=== PATIENT | female | born 1950 | race Caucasian/White ===

== ENCOUNTER 2018-02-24 17:04 | Inpatient (IN) ==
[2018-02-24] MEDS ORDERED: Naloxone 0.4 MG/ML INJ IVP PRN (21:10)
--- NOTE | 2018-02-24 21:25 | Internal Med History&Physical ---
Date of Encounter: 02/24/18 Time of Encounter: 21:16 Internal Medicine - H&P: HPI Chief complaint: abnormal labs Admitted From: Emergency Dept Plans for Post Hospital Care: Home History of present illness: Ms. Harrison is a 67 year old female was a better history of atrial ablation, hypertension, hyperlipidemia. Patient was evaluated by primary care provider and sent to [facility] emergency room for possible jaundice. Patient was evaluated by [facility] emergency room. Basic labs were drawn. Noted that patient has a hemoglobin of 4.4. Also noted that patient has a possible urinary tract infection as per urine analysis evaluation. Patient was transferred to this hospital in view of hemoglobin 4.4. Patient had a previous history of GI bleed and she underwent endoscopy. It was noted that patient had a gastric ulcer at that time. Stool occult blood was negative at [facility] emergency room. Reason for transfer: Abnormally low hemoglobin for blood transfusion and further evaluation. Past Med Surg Social Fam HX - Past Medical History Medical history: atrial fibrillation, CHF, hyperlipidemia, hypertension Psychiatric history: depression - Social History Smoking Status: Never smoker Smokeless Tobacco Status: No Alcohol use: rarely Drug use: none Internal Medicine - H&P: Meds Aspirin Enteric Coated [Aspirin EC] 650 mg PO DAILY 02/24/18 [History] FLUoxetine HCl [Prozac] 40 mg PO DAILY 02/24/18 [History] Furosemide [Lasix] 20 mg PO DAILY 02/24/18 [History] Omeprazole [PriLOSEC] 20 mg PO DAILY 02/24/18 [History] Potassium Chloride [Klor-Con] 20 meq PO DAILY 02/24/18 [History] Simvastatin [Zocor] 40 mg PO HS 02/24/18 [History] Sulfamethoxazole/Trimeth DS [Bactrim DS] 1 each PO BID 02/24/18 [History] dilTIAZem HCl [Diltiazem 24Hr Cd] 120 mg PO DAILY 02/24/18 [History] 3 Allergy/AdvReac Type Severity Reaction Status Date / Time rivaroxaban [From Xarelto] Allergy See Verified 02/24/18 12:19 Comments Warfarin [From Coumadin] Allergy See Verified 02/24/18 12:19 Comments All Systems PM: A 10-system review of systems was performed and is negative for pertinent findings except as documented above in the HPI. - Constitutional Constitutional: no chills, no fever(s), no night sweats - EENT Eyes: no change in vision, no discharge, no pain, no photophobia Ears: no ear discharge, no ear pain, no tinnitus Nose, mouth and throat: no dysphagia, no nasal discharge, no neck pain, no sore throat - Cardiovascular Cardiovascular ROS IM: diaphoresis, dyspnea, no chest pain, no lightheadedness, no palpitations, no syncope - Respiratory Respiratory: no cough, no dyspnea, no wheezing, no excessive phlegm production - Gastrointestinal Gastrointestinal: no abdominal pain, no diarrhea, no hematemesis, no hematochezia, no melena, no nausea, no vomiting - Genitourinary Genitourinary: no change in urinary stream, no dysuria, no flank pain, no hematuria - Musculoskeletal Musculoskeletal ROS IM: no numbness, no tingling - Integumentary Integumentary IM: no rash, no unusual bruising - Neurological Neurological ROS: no confusion, no convulsions, no focal weakness, no numbness, no tingling, no tremor(s) - Hematologic/Lymphatic Hematologic/Lymphatic: no easy bruising - Constitutional Vitals: Temp Pulse Resp BP Pulse Ox 98.0 F 85 16 138/82 97 02/24/18 19:14 02/24/18 19:14 02/24/18 19:14 02/24/18 19:14 02/24/18 19:29 General appearance: Present: A&O X 3, pleasant, no acute distress, answers questions appropriately - Head Head exam: Present: atraumatic, normocephalic - Eye Eye exam: Present: PERRL, conjuntiva pink, sclera anicteric Pupils: Present: PERRL - Neck Neck exam general surgery: Present: supple, trachea midline. Absent: lymphadenopathy - Respiratory Respiratory exam: Present: CTAB. Absent: accessory muscle use, rales, rhonchi, wheezes - Cardiovascular Cardiovascular exam: Present: RRR, +S1, +S2. Absent: diastolic murmur, gallop, rubs, systolic murmur - GI/Abdominal GI/Abdominal exam: Present: normal bowel sounds, soft, no peritoneal signs. Absent: distended, tenderness - Extremities Exam Extremities exam: Present: warm, radial pulses palpable and symmetrical. Absent : calf tenderness, cyanotic, pedal edema - Neurological Exam Neurological exam: Present: CN II-XII intact, oriented X3, no focal deficits. Absent: pronater drift, facial droop, speech deficit - Skin Skin exam: Present: dry, intact - Assessment and plan (1) Symptomatic anemia Current Visit: No Status: Acute Assessment and plan: Patient does have symptom medical anemia. Patient's hemoglobin is 4.4. This appears to be hypochromic microcytic: Likely iron deficiency. Patient has a upcoming appointment for pulmonology for chronic shortness of breath: Likely secondary to low hemoglobin. Plan: Admit as inpatient. Transfuse packed red blood cells. Labs in the a.m. Intermittent intravenous Lasix. Strict bedrest. Cycle troponin. IV PPI 40 mg twice a day. Nothing by mouth from midnight. GI consult placed. SCD (2) UTI (urinary tract infection) Current Visit: No Status: Acute Assessment and plan: Patient complains of occasional dysuria. Urinalysis is suggestive of urinary tract infection. We will start her on Macrobid which was initiated in [facility] emergency room. Qualifiers: Urinary tract infection type: acute cystitis Hematuria presence: without hematuria Qualified Code(s): N30.00 - Acute cystitis without hematuria (3) DVT prophylaxis Current Visit: Yes Status: Acute Assessment and plan: SCD This patient is not a candidate for pharmacological DVT prophylaxis as patient has low hemoglobin with unclear etiology at this point Medical decision making: This patient has a moderate to severe risk of worsening in spite of being on appropriate medication due to the underlying chronic comorbid conditions. - Time Spent With Patient Total time spent is greater than 50% in coordination of care (as documented) at patient's floor/unit and/or counseling patient:
[2018-02-24] MEDS ORDERED: 0.9 % Sodium Chloride 250 ML ONE (21:53)
[2018-02-25 04:42] LABS: INR 1.3; Prothrombin Time 13.8 Seconds (9.4-12.1)
[2018-02-25 04:45] LABS: Activated Partial Thrombo Time 29.9 Seconds (26.0-36.0)
[2018-02-25 04:57] LABS: Alanine Aminotransferase 5 Units/L (7-52); Albumin 3.7 g/dL (3.5-5.7); Albumin/Globulin Ratio 1.3 (1.1-2.2); Alkaline Phosphatase 64 Units/L (34-104); Aspartate Amino Transferase 10 Units/L (13-39); BUN/Creatinine Ratio 21 (6-26); Bilirubin,Total 1.4 mg/dL (0.3-1.0); Blood Urea Nitrogen 17 mg/dL (8-23); Carbon Dioxide 27 mEq/L (23-29); Chloride 111 mEq/L (98-107); Globulin 2.9 g/dL (2.4-3.5); Glucose 80 mg/dL (70-105); Magnesium 1.9 mg/dL (1.6-2.6); Osmolality,Calculated 295 (280-300); Phosphorous 3.4 mg/dL (2.7-4.5); Potassium 4.4 mEq/L (3.5-5.1); Sodium 142 mEq/L (136-145); Total Protein 6.6 g/dL (6.4-8.9); eGFR For African Americans > 60 (> 60); eGFR For Non-African Americans > 60 (> 60)
[2018-02-25] MEDS: Pantoprazole 40 MG VIAL IVP SCH ×2 (05:49→17:33)
[2018-02-25 07:12] LABS: Hematocrit 22.9 % (35.3-44.9); Nucleated Red Blood Cells 0.8 /100 WBC (0)
[2018-02-25 07:13] LABS: Eosinophils # 0.1 K/mcL (0.0-0.6); Hemoglobin 6.2 g/dL (11.5-15.4); Lymphocytes # 0.7 K/mcL (0.6-4.6); Mean Corpuscular HGB Conc 27.1 g/dL (31.6-35.5); Mean Corpuscular Hemoglobin 19.9 pg (28.0-33.3); Mean Corpuscular Volume 73.4 fL (83.0-100.0); Mean Platelet Volume 11.3 fL (9.4-12.4); Platelet Count 188 K/mcL (140-400); Red Blood Count 3.12 M/mcL (3.82-4.97); Red Cell Distribution Width 23.5 % (11.5-14.5)
[2018-02-25 08:50] LABS: % Iron Saturation 13 % (15-50); Ferritin < 8 ng/ml (10-120); Iron 66 mcg/dL (50-170); Lactate Dehydrogenase 133 Units/L (140-271); Transferrin 370 mg/dL (203-362)
[2018-02-25 08:54] LABS: Immature Reticulocyte % 32.6 % (11.0-38.0); Retculocyte # 0.04 M/mcL (0.05-0.10); Reticulocyte % 1.3 % (1.6-2.8)
[2018-02-25] MEDS ORDERED: 0.9 % Sodium Chloride 250 ML ONE ×2 (09:18→14:21)
[2018-02-25] MEDS: Diltiazem CD (24hr) 120 MG CAPSULE PO SCH (09:49)
[2018-02-25] MEDS: Nitrofurantoin (BID) 100 MG CAPSULE PO SCH ×2 (10:13→17:33)
[2018-02-25] MEDS: Furosemide 20 MG TABLET PO SCH (10:13)
[2018-02-25] MEDS: FLUoxetine 20 MG CAPSULE PO SCH (10:13)
[2018-02-25] MEDS ORDERED: Furosemide 20 MG/2 ML VIAL IVP ONE ×2 (10:27→17:06)
[2018-02-25 11:38] LABS: Basophils # 0.1 K/mcL (0.0-0.2); Monocytes # 0.7 K/mcL (0.0-1.3); Neutrophils # 2.1 K/mcL (1.6-8.9)
[2018-02-25 11:39] LABS: Anisocytosis 3+ (Not Present); Hypochromasia Present (Not Present); Microcytosis Present (Not Present); Platelet Estimate Normal (Normal); Poikilocytosis 1+ (Not Present); Polychromasia 1+ (Not Present)
[2018-02-25] MEDS ORDERED: SODIUM CHLORIDE/NAHCO3/KCL/PEG 4,000 ML SOLN.RECON PO ONE (14:00)
--- NOTE | 2018-02-25 14:28 | Gastroenterology Consult Note ---
<Mati Long - Last Filed: 02/25/18 14:26> Date of Encounter: 02/25/18 Time of Encounter: 12:15 - Assessment and plan (1) Symptomatic anemia Current Visit: No Status: Acute Assessment and plan: Hgb 4.4 at outside facility. Four units PRBC have been ordered and this morning Hgb 6.2 with MCV 73.4. Iron 66 and ferritin <8. Continue to monitor CBC and transfuse PRBC as needed. Check celiac panel. Plan for EGD and colonoscopy tomorrow. Clear liquid diet today, no red or purple. NPO at midnight. If unable tolerate NuLytely please use MiraLAX prep. If not clear by 6 AM, give 2 tap water enemas. (2) Dysphagia Current Visit: Yes Status: Acute Assessment and plan: Plan for EGD tomorrow with possible dilation. Qualifiers: Dysphagia type: unspecified Qualified Code(s): R13.10 - Dysphagia, unspecified - Time Spent With Patient Total time spent is greater than 50% in coordination of care (as documented) at patient's floor/unit and/or counseling patient: GI History of Present Illness - Data of Consult Patient: new to practice Consult date: 02/25/18 Requesting Physician: Rowdy Machado MD - Consult Narrative Reason for consult: TIGIST History of present illness: Ms. Harrison is a 67 year old female with PMHx of Afib, CHF, HLD, HTN, GI bleed who was transferred here with Hgb 4.4. Stool occult blood was negative at [facility] ED. She denies fever, chills, chest pain, shortness of breath, abdominal pain, nausea, vomiting, constipation, diarrhea, melena, or hematochezia. We were consulted to evaluate her anemia. Hgb this AM 6.2 with MCV 73.4, Iron 66 and ferritin <8. Pt also reports dysphagia with solids and liquids, feeling like they get stuck. Procedures: EGD 07/11/2011 Dr. Benton: Gastritis EGD 05/12/2011 Dr. Benton: (d/t melena) Gastric ulcer with clean base NSAIDs: ASA Anticoagulation: None Past Med Surg Social Fam HX - Past Medical History Medical history: atrial fibrillation, CHF, hyperlipidemia, hypertension Psychiatric history: depression - Social History Smoking Status: Never smoker Smokeless Tobacco Status: No Alcohol use: rarely Drug use: none - Gastrointestinal Gastrointestinal: Present: as per HPI - Constitutional Constitutional: as per HPI - EENT Eyes: as per HPI Ears: Present: as per HPI Nose, mouth and throat: Present: as per HPI - Cardiovascular Cardiovascular ROS: Present: as per HPI - Respiratory Respiratory IM: Present: as per HPI - Genitourinary Genitourinary: Absent: change in color, Urinary frequency - Neurological ROS Neurological GI: Present: as per HPI - Hematologic/Lymphatic Hematologic/Lymphatic pediatric: Present: as per HPI - Musculoskeletal Musculoskeletal ROS GI: Present: as per HPI - Integumentary Integumentary GI: Present: as per HPI - Psychiatric ROS Psychiatric GI: Present: as per HPI - Endocrine Endocrine IM: Present: as per HPI - Constitutional Vitals: Temp Pulse Resp BP Pulse Ox 97.9 F 81 16 133/72 100 02/25/18 12:33 02/25/18 12:33 02/25/18 12:33 02/25/18 12:33 02/25/18 12:33 General appearance: Present: cooperative, A&O X 3, no acute distress, answers questions appropriately - Head Head exam: Present: atraumatic, normocephalic - Eye Eye exam: Present: normal appearance, sclera anicteric - ENT ENT exam: Present: mucous membranes moist - Neck Neck exam general surgery: Present: normal inspection, trachea midline - Respiratory Respiratory exam: Present: CTAB. Absent: rales, rhonchi - Cardiovascular Cardiovascular exam: Present: RRR, +S1, +S2 - GI/Abdominal GI/Abdominal exam: Present: soft, no peritoneal signs. Absent: distended, firm , guarding, tenderness - Rectal Rectal exam: Present: deferred - Extremities Exam Extremities exam: Present: warm - Neurological Exam Neurological exam: Present: no focal deficits - Psychiatric Psychiatric exam: Present: normal affect, normal mood - Skin Skin exam: Present: dry, intact, normal color, warm Results - Labs CBC & Chem 7: 02/25/18 06:46 02/25/18 04:16 Labs: Last Result Calcium 10.0 mg/dL (8.6-10.3) 02/25/18 04:16 Iron 66 mcg/dL (50-170) 02/25/18 08:02 % Saturation 13 % (15-50) L 02/25/18 08:02 Transferrin 370 mg/dL (203-362) H 02/25/18 08:02 Ferritin < 8 ng/ml (10-120) L 02/25/18 08:02 Troponin I < 0.03 ng/mL (< 0.04) 02/25/18 04:16 Entire Visit Hgb 6.2 g/dL (11.5-15.4) L D 02/25/18 06:46 Hct 22.9 % (35.3-44.9) L 02/25/18 06:46 PT 13.8 Seconds (9.4-12.1) H 02/25/18 04:16 Ferritin < 8 ng/ml (10-120) L 02/25/18 08:02 Total Bilirubin 1.4 mg/dL (0.3-1.0) H 02/25/18 04:16 AST 10 Units/L (13-39) L 02/25/18 04:16 ALT 5 Units/L (7-52) L 02/25/18 04:16 - ABG ABG results: PT/INR, D-dimer PT 13.8 Seconds (9.4-12.1) H 02/25/18 04:16 Consult Discharge Plan - Plan Referrals: Nicolas Hines, [employer] [Primary Care Provider] - <Aidan Ferrer - Last Filed: 02/25/18 17:41> Date of Encounter: 02/25/18 Time of Encounter: 17:20 - Time Spent With Patient Total time spent is greater than 50% in coordination of care (as documented) at patient's floor/unit and/or counseling patient: GI History of Present Illness - Data of Consult Requesting Physician: Rowyd Machado MD - Consult Narrative History of present illness: Ms. Harrison is a 67 year old female - Constitutional Vitals: Temp Pulse Resp BP Pulse Ox 97.6 F 88 16 120/55 95 02/25/18 17:34 02/25/18 17:34 02/25/18 17:34 02/25/18 17:34 02/25/18 17:34 Results - Labs CBC & Chem 7: 02/25/18 06:46 02/25/18 04:16 Labs: Last Result Calcium 10.0 mg/dL (8.6-10.3) 02/25/18 04:16 Iron 66 mcg/dL (50-170) 02/25/18 08:02 % Saturation 13 % (15-50) L 02/25/18 08:02 Transferrin 370 mg/dL (203-362) H 02/25/18 08:02 Ferritin < 8 ng/ml (10-120) L 02/25/18 08:02 Troponin I < 0.03 ng/mL (< 0.04) 02/25/18 14:13 Entire Visit Hgb 6.2 g/dL (11.5-15.4) L D 02/25/18 06:46 Hct 22.9 % (35.3-44.9) L 02/25/18 06:46 PT 13.8 Seconds (9.4-12.1) H 02/25/18 04:16 Ferritin < 8 ng/ml (10-120) L 02/25/18 08:02 Total Bilirubin 1.4 mg/dL (0.3-1.0) H 02/25/18 04:16 AST 10 Units/L (13-39) L 02/25/18 04:16 ALT 5 Units/L (7-52) L 02/25/18 04:16 - ABG ABG results: PT/INR, D-dimer PT 13.8 Seconds (9.4-12.1) H 02/25/18 04:16 - Attending Attestation I have personally performed a face to face evaluation on this patient. I have reviewed and agree with the care plan. History and Exam by me shows: Patient seen. Patient with severe anemia but no overt bleeding. Recommendation EGD and colonoscopy if negative then capsule endoscopy as an outpatient
--- NOTE | 2018-02-25 16:17 | Internal Med Progress Note ---
Date of Encounter: 02/25/18 Time of Encounter: 16:14 - Assessment and plan (1) Severe anemia Current Visit: Yes Status: Acute Assessment and plan: Patient has extensive history of hematological disorders, she reported she had numerous times of blood clots including pulmonary embolism and DVTs, she also has tried several different types anticoagulation agents in the past, however, they caused massive bleeding, Xarelto and warfarin therefore was listed as allergy. - At [facility], FOBT was reportedly normal. will repeat here to confirm. Given Hx of peptic ulcer, GI bleeding is likely. GI will scope in am. appreciate help. - Reti count low, iron is low, indicating iron deficiency, will give IV Venofer daily for 2 days. Start oral iron supplement after GI procedures. - If GI scope is normal, then we will need to rule out other causes of anemia including hemoglobinopathy, hemolytic anemia, and paroxysmal nocturnal hemoglobinuria. - Consult Hematology if indicated. (2) Atrial fibrillation Current Visit: Yes Status: Chronic Assessment and plan: - Atrial fibrillation on the secured entrance monitor, rate controlled at 80-90 by po Cardizem. No anticoagulation besides aspirin because of bleeding in the past. Qualifiers: Atrial fibrillation type: chronic Qualified Code(s): I48.2 - Chronic atrial fibrillation (3) Hx pulmonary embolism Current Visit: No Status: Chronic Assessment and plan: - History of blood clots including PE and DVT. May need hypercoagulation workup. - Not on any anticoagulation because of massive bleeding in the past. (4) History of GI bleed Current Visit: Yes Status: Acute Assessment and plan: - History of peptic ulcer, continue PPI IV. (5) CHF (congestive heart failure), NYHA class II Current Visit: No Status: Chronic Assessment and plan: - TTE 08/2017 revealed preserved EF 65%, normal systolic function, mild LV diastolic dysfunction, moderate to severely dilated atrias, and the severe pulmonary hypertension. - Euvolemic on physical exam, Continue home Lasix by mouth. 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 - Euvolemic on physical exam, continue home Lasix. - Time Spent With Patient Total time spent is greater than 50% in coordination of care (as documented) at patient's floor/unit and/or counseling patient: Greater than 35 minutes - Subjective Interval history: Patient resting in bed. She denies she ever had any jaundice and explained to me that is because she looks pale all the time. She denies hematemesis, hematuria, or hemoptysis. - Constitutional Vitals: Temp Pulse Resp BP Pulse Ox 98.1 F 74 16 105/55 100 02/25/18 14:42 02/25/18 14:42 02/25/18 14:42 02/25/18 14:42 02/25/18 14:42 General appearance: Present: A&O X 3, pleasant, no acute distress, answers questions appropriately Exam: PHYSICAL EXAMINATION: GENERAL APPEARANCE: The patient is alert, oriented and in no acute distress. HEENT: Head is normocephalic. The sinuses are nontender. Pupils are equal and reactive. The nares are patent. Oropharynx clear without lesions. NECK: Supple without lymphadenopathy. HEART: Regular rate and rhythm. LUNGS: No crackles or wheezes are heard. ABDOMEN: Soft, nontender, nondistended with good bowel sounds heard. Inguinal area is normal. EXTREMITIES: Without cyanosis, clubbing or edema. NEUROLOGICAL: Gross nonfocal. SKIN: Warm and dry without any rash. Internal Medicine: Result - Labs CBC & Chem 7: 02/25/18 06:46 02/25/18 04:16 Labs: Short CBC 02/25/18 Range/Units 06:46 WBC 3.6 L (4.3-11.1) K/mcL Hgb 6.2 L D (11.5-15.4) g/dL Hct 22.9 L (35.3-44.9) % Plt Count 188 (140-400) K/mcL Neutrophils # 2.1 (1.6-8.9) K/mcL BMP 02/25/18 04:16 Sodium 142 Potassium 4.4 Chloride 111 H Carbon Dioxide 27 BUN 17 Creatinine 0.81 Glucose 80 Calcium 10.0 Cardiac Enzymes 02/24/18 02/25/18 02/25/18 Range/Units 21:19 04:16 14:13 Troponin I < 0.03 < 0.03 < 0.03 (< 0.04) ng/mL Liver Function 02/25/18 Range/Units 04:16 Total Bilirubin 1.4 H (0.3-1.0) mg/dL AST 10 L (13-39) Units/L ALT 5 L (7-52) Units/L Alkaline Phosphatase 64 (34-104) Units/L Albumin 3.7 (3.5-5.7) g/dL - ABG Interpretation ABG results: PT/INR, D-dimer PT 13.8 Seconds (9.4-12.1) H 02/25/18 04:16 Consult Discharge Plan - Plan Referrals: Nicolas Hines, [employer] [Primary Care Provider] -
[2018-02-25] MEDS: Iron Sucrose Complex 200 MG in 0.9 % Sodium Chloride 100 ML IVPB SCH (17:33)
[2018-02-25 21:31] LABS: Hematocrit 33.7 % (35.3-44.9); Hemoglobin 9.5 g/dL (11.5-15.4)
[2018-02-26] MEDS: Pantoprazole 40 MG VIAL IVP SCH (05:20)
[2018-02-26 06:08] LABS: Eosinophils % 2.6 %; Hemoglobin 8.5 g/dL (11.5-15.4); Nucleated Red Blood Cells 0.6 /100 WBC (0)
[2018-02-26 06:10] LABS: Basophils % 0.7 %; Eosinophils # 0.1 K/mcL (0.0-0.6); Hematocrit 29.2 % (35.3-44.9); Immature Granulocytes % 1.3 % (0-4); Immature Platelets 4.8 % (1.1-6.1); Lymphocytes # 0.6 K/mcL (0.6-4.6); Lymphocytes % 11.3 %; Mean Corpuscular HGB Conc 29.1 g/dL (31.6-35.5); Mean Corpuscular Hemoglobin 21.8 pg (28.0-33.3); Mean Corpuscular Volume 74.9 fL (83.0-100.0); Mean Platelet Volume 10.1 fL (9.4-12.4); Monocytes # 0.6 K/mcL (0.0-1.3); Monocytes % 10.6 %; Platelet Count 181 K/mcL (140-400); Red Cell Distribution Width 22.8 % (11.5-14.5); Segmented Neutrophils % 73.5 %
[2018-02-26 06:27] LABS: Alanine Aminotransferase 5 Units/L (7-52); Albumin 3.6 g/dL (3.5-5.7); Albumin/Globulin Ratio 1.3 (1.1-2.2); Alkaline Phosphatase 62 Units/L (34-104); Aspartate Amino Transferase 11 Units/L (13-39); BUN/Creatinine Ratio 17 (6-26); Bilirubin,Total 1.4 mg/dL (0.3-1.0); Blood Urea Nitrogen 12 mg/dL (8-23); Calcium 9.9 mg/dL (8.6-10.3); Carbon Dioxide 25 mEq/L (23-29); Chloride 108 mEq/L (98-107); Globulin 2.8 g/dL (2.4-3.5); Glucose 76 mg/dL (70-105); Osmolality,Calculated 291 (280-300); Potassium 3.5 mEq/L (3.5-5.1); Sodium 141 mEq/L (136-145); Total Protein 6.4 g/dL (6.4-8.9); eGFR For African Americans > 60 (> 60); eGFR For Non-African Americans > 60 (> 60)
--- NOTE | 2018-02-26 08:15 | Anesthesia Evaluation PreOp ---
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: Denies Any Significant HX Other Medical History: Denies Any Significant HX, Other (Morbid Obesity) Anesthesia History: No Prior Anesthetic Complications : No Alcohol Use: rarely Drug use: none Medications and Allergies Aspirin Enteric Coated [Aspirin EC] 650 mg PO DAILY 02/24/18 [History] FLUoxetine HCl [Prozac] 40 mg PO DAILY 02/24/18 [History] Furosemide [Lasix] 20 mg PO DAILY 02/24/18 [History] Omeprazole [PriLOSEC] 20 mg PO DAILY 02/24/18 [History] Potassium Chloride [Klor-Con] 20 meq PO DAILY 02/24/18 [History] Simvastatin [Zocor] 40 mg PO HS 02/24/18 [History] Sulfamethoxazole/Trimeth DS [Bactrim DS] 1 each PO BID 02/24/18 [History] dilTIAZem HCl [Diltiazem 24Hr Cd] 120 mg PO DAILY 02/24/18 [History] 3 Allergy/AdvReac Type Severity Reaction Status Date / Time rivaroxaban [From Xarelto] Allergy See Verified 02/24/18 12:19 Comments Warfarin [From Coumadin] Allergy See Verified 02/24/18 12:19 Comments - Meds/Allergy Pre-op Review Medications Reviewed: Yes Allergies Reviewed: Yes Beta Blockers on Current Med List: No Anesthesia Results - Labs 02/26/18 05:34 02/26/18 05:34 - Imaging Additional studies: ECHO 2017 EF 65%, dilated atrium, severe pulmonary htn Anesthesia Exam O2 Sat O2 Sat by Pulse Oximetry 96 O2 Sat by Pulse Oximetry 98 O2 Sat by Pulse Oximetry 93 O2 Sat by Pulse Oximetry 100 O2 Sat by Pulse Oximetry 95 O2 Sat by Pulse Oximetry 100 O2 Sat by Pulse Oximetry 100 O2 Sat by Pulse Oximetry 100 O2 Sat by Pulse Oximetry 100 O2 Sat by Pulse Oximetry 99 O2 Sat by Pulse Oximetry 100 O2 Sat by Pulse Oximetry 3 Vital Signs Temp Pulse Resp BP Pulse Ox 98.0 F 85 16 138/82 97 02/24/18 19:14 02/24/18 19:14 02/24/18 19:14 02/24/18 19:14 02/24/18 19:14 - HEENT Pupil (Motor): Pupils equal, EOMI Mallampati: III Teeth: Normal Oral Opening: Less than or equal to 3 - 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 LOC: Oriented 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 Motor: Normal RUE, Normal LUE, Normal RLE, Normal LLE, Normal Face 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 Sensory: Normal: RUE, LUE, RLE, LLE, Face - Cardiac Rhythm: Irregular Murmur: None JVD: No Carotid Bruit: No - Pulmonary Breath Sounds: bilateral Clear Respiratory Effort: Symmetrical Anesthesia Assess/Plan ASA Score: 4 (AFib, Severe Anemia, Severe Pulm HTN, Morbid Obesity) Modified Cirilo Scale for Level of Consciousness: Cooperative, oriented, and tranquil Anesthetic Plan: MAC Monitoring Plan: Standard Monitors Recovery Plan: Other (Discussed MAC, agrees to proceed)
[2018-02-26] MEDS ORDERED: Propofol 500 MG/50 ML INFUS..BTL ONE (08:38)
--- NOTE | 2018-02-26 09:51 | Anesthesia Evaluation Post Op ---
Date of Encounter: 02/26/18 Time of Encounter: 09:45 - Vital Signs Vital Signs: Vital Signs/O2 Sat/Glucose, Most Current Temp Pulse Resp BP Pulse Ox 02/26/18 09:43 91 16 131/70 100 02/26/18 09:27 87 16 147/78 99 02/26/18 08:56 72 16 167/96 97 02/26/18 07:09 97.8 F 65 20 111/67 96 - Lungs Lungs: Clear Ascult./Percussion - Airway Airway: Non-obstructed - Cardiovascular Irregular Rate, Baseline Rhythm - Mental Status Mental Status: Alert & Oriented, Answers Appropriately - Pain Pain Scale: 0 - Nausea Vomiting Nausea Vomiting: Not Present - Hydration Hydration: NPO - Discharge PostOp Status: Transfer Patient to floor
--- NOTE | 2018-02-26 10:37 | Internal Med Progress Note ---
Date of Encounter: 02/26/18 Time of Encounter: 10:32 - Assessment and plan (1) Severe anemia Current Visit: Yes Status: Acute Assessment and plan: Patient has extensive history of hematological disorders, she reported she had numerous times of blood clots including pulmonary embolism and DVTs, she also has tried several different types anticoagulation agents in the past, however, they caused massive bleeding, Xarelto and warfarin therefore was listed as allergy. - Reti count low, iron is low, indicating iron deficiency, will give IV Venofer daily for 2 days. Start oral iron supplement after GI procedures. - EGD showed Bradley's esophagus and a small nonbleeding gastric ulcer. Colonoscopy revealed diverticulosis, small hemorrhoids, no bleeding site was identified. - To ensure that he is exact etiology of anemia, unlikely Iron deficiency is a sole culprit. Hemolytic anemia is suspected, however LDH is normal. Haptoglobin pending. Veronica test ordered. Other bleeding disorders including von Willebrand disease were also suspected. - Hem/Onc consulted, appreciate help. Plan: Presented with severe anemia, saved for unit PRBC, hemoglobin currently about 8. GI scopes ruled out bleeding of GI source. Workup for other possible bleeding disorders started, customer experience associate consulted. 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 No anticoagulation besides aspirin because of bleeding in the past. Qualifiers: Atrial fibrillation type: chronic Qualified Code(s): I48.2 - Chronic atrial fibrillation (3) Hx pulmonary embolism Current Visit: No Status: Chronic Assessment and plan: - History of blood clots including PE and DVT. May need hypercoagulation workup. - Not on any anticoagulation because of massive bleeding in the past. (4) History of GI bleed Current Visit: Yes Status: Acute Assessment and plan: - History of peptic ulcer, continue PPI. 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 - Euvolemic on physical exam, continue home Lasix. (6) Diastolic heart failure Current Visit: No Status: Chronic Assessment and plan: - TTE 08/2017 revealed preserved EF 65%, normal systolic function, mild LV diastolic dysfunction, moderate to severely dilated left and right atrium, and the severe pulmonary hypertension. - Euvolemic on physical exam, Continue home Lasix by mouth. Qualifiers: Heart failure chronicity: chronic Qualified Code(s): I50.32 - Chronic diastolic (congestive) heart failure (7) Morbid obesity Current Visit: No Status: Chronic Assessment and plan: - increase activity and diet control discussed with patient. - Time Spent With Patient Total time spent is greater than 50% in coordination of care (as documented) at patient's floor/unit and/or counseling patient: Greater than 35 minutes - Subjective Interval history: Patient seen in the room, she just came back from endoscopy. Her shortness breath has improved. is also in the room. - Constitutional Vitals: Temp Pulse Resp BP Pulse Ox 97.8 F 91 16 131/70 100 02/26/18 07:09 02/26/18 09:43 02/26/18 09:43 02/26/18 09:43 02/26/18 09:43 General appearance: Present: A&O X 3, pleasant, no acute distress, answers questions appropriately Exam: PHYSICAL EXAMINATION: GENERAL APPEARANCE: The patient is alert, oriented and in no acute distress. HEENT: Head is normocephalic. The sinuses are nontender. Pupils are equal and reactive. The nares are patent. Oropharynx clear without lesions. NECK: Supple without lymphadenopathy. HEART: Regular rate and rhythm. LUNGS: No crackles or wheezes are heard. ABDOMEN: Soft, nontender, nondistended with good bowel sounds heard. Inguinal area is normal. EXTREMITIES: Without cyanosis, clubbing or edema. NEUROLOGICAL: Gross nonfocal. SKIN: Warm and dry without any rash. Internal Medicine: Result - Labs CBC & Chem 7: 02/26/18 05:34 02/26/18 05:34 Labs: Short CBC 02/25/18 02/25/18 02/26/18 Range/Units 06:46 20:37 05:34 WBC 5.4 (4.3-11.1) K/mcL Hgb 9.5 L D 8.5 L (11.5-15.4) g/dL Hct 33.7 L 29.2 L (35.3-44.9) % Plt Count 181 (140-400) K/mcL Neutrophils # 2.1 4.0 (1.6-8.9) K/mcL BMP 02/26/18 05:34 Sodium 141 Potassium 3.5 Chloride 108 H Carbon Dioxide 25 BUN 12 Creatinine 0.71 Glucose 76 Calcium 9.9 Cardiac Enzymes 02/25/18 Range/Units 14:13 Troponin I < 0.03 (< 0.04) ng/mL Liver Function 02/26/18 Range/Units 05:34 Total Bilirubin 1.4 H (0.3-1.0) mg/dL AST 11 L (13-39) Units/L ALT 5 L (7-52) Units/L Alkaline Phosphatase 62 (34-104) Units/L Albumin 3.6 (3.5-5.7) g/dL - ABG Interpretation ABG results: PT/INR, D-dimer PT 13.8 Seconds (9.4-12.1) H 02/25/18 04:16 Consult Discharge Plan - Plan Referrals: Nicolas Hines, ENDOSCOPY NURSE [Primary Care Provider] -
[2018-02-26] MEDS: Nitrofurantoin (BID) 100 MG CAPSULE PO SCH ×2 (10:56→18:27)
[2018-02-26] MEDS: FLUoxetine 20 MG CAPSULE PO SCH (10:56)
[2018-02-26] MEDS: Diltiazem CD (24hr) 120 MG CAPSULE PO SCH (10:56)
[2018-02-26] MEDS: Furosemide 20 MG TABLET PO SCH (10:57)
[2018-02-26] MEDS: Iron Sucrose Complex 200 MG in 0.9 % Sodium Chloride 100 ML IVPB SCH (11:01)
[2018-02-26] MEDS ORDERED: Isovue-370 500 ML INFUS..BTL IV ONE (13:57)
--- NOTE | 2018-02-26 14:00 | Oncology Inp Progress Note ---
Date of Encounter: 02/26/18 Time of Encounter: 13:00 - Constitutional Vitals: Vital Signs Temp Pulse Resp BP Pulse Ox 02/26/18 11:24 97.6 F 88 20 122/75 99 02/26/18 11:00 16 120/67 93 02/26/18 09:43 91 16 131/70 100 02/26/18 09:27 87 16 147/78 99 02/26/18 08:56 72 16 167/96 97 02/26/18 07:09 97.8 F 65 20 111/67 96 02/26/18 04:23 98.4 F 83 16 122/73 98 02/25/18 23:24 98.1 F 85 24 132/76 93 02/25/18 19:19 97.8 F 86 16 136/59 100 02/25/18 17:34 97.6 F 88 16 120/55 95 02/25/18 14:42 98.1 F 74 16 105/55 100 02/25/18 14:27 97.8 F 76 16 123/55 100 Intake and Output 02/25/18 02/26/18 02/26/18 23:59 07:59 15:59 Intake Total 670 / 670 100 / 100 Output Total 300 / 300 Balance 670 / 670 -200 / -200 Intake: IV Fluids 110 / 110 100 / 100 Venofer 200 MG In 0.9 % Sodium 110 / 110 100 / 100 Chloride 100 ML @ 200 mls/hr IVPB DAILY [facility] Rx#:[id number] Oral 240 / 240 Blood Product 320 / 320 Rbcs Leuko Poor As-1 Unit 320 / 320 [id number] Output: Urine 300 / 300 Other: Meal Clear Liquid Stool Size Large Stool Consistency liquid Stool Characteristics Normal for Patient Stool Color Brown Yellow # Voids 4 1 1 # Bowel Movements 1 Blood Glucose* 74 74 Oncology: Obj Data - Labs CBC & Chem 7: 02/26/18 05:34 02/26/18 05:34 Labs: Laboratory Results - last 24 hr 02/24/18 02/24/18 02/25/18 20:09 23:46 11:14 WBC RBC Hgb Hct MCV MCH MCHC RDW Plt Count MPV Immature Gran % Seg Neutrophils % Lymphocytes % Monocytes % Eosinophils % Basophils % Neutrophils # Lymphocytes # Monocytes # Eosinophils # Basophils # Nucleated RBCs/100 WBC Immature Plt Fraction Sodium Potassium Chloride Carbon Dioxide BUN Creatinine Est GFR ( Amer) Est GFR (Non-Af Amer) BUN/Creatinine Ratio Glucose POC Glucose 89 79 Calculated Osmolality Calcium Total Bilirubin AST ALT Alkaline Phosphatase Troponin I Serum Total Protein Albumin Globulin Albumin/Globulin Ratio Blood Type B POSITIVE Antibody Screen NEGATIVE SUZANNE, Poly Interpret Crossmatch See Detail 02/25/18 02/25/18 02/25/18 14:13 14:13 20:37 WBC RBC Hgb 9.5 L D Hct 33.7 L MCV MCH MCHC RDW Plt Count MPV Immature Gran % Seg Neutrophils % Lymphocytes % Monocytes % Eosinophils % Basophils % Neutrophils # Lymphocytes # Monocytes # Eosinophils # Basophils # Nucleated RBCs/100 WBC Immature Plt Fraction Sodium Potassium Chloride Carbon Dioxide BUN Creatinine Est GFR ( Amer) Est GFR (Non-Af Amer) BUN/Creatinine Ratio Glucose POC Glucose Calculated Osmolality Calcium Total Bilirubin AST ALT Alkaline Phosphatase Troponin I < 0.03 Serum Total Protein Albumin Globulin Albumin/Globulin Ratio Blood Type Antibody Screen SUZANNE, Poly Interpret NEG Crossmatch 02/26/18 02/26/18 02/26/18 05:34 05:34 07:14 WBC 5.4 RBC 3.90 Hgb 8.5 L Hct 29.2 L MCV 74.9 L MCH 21.8 L MCHC 29.1 L RDW 22.8 H Plt Count 181 MPV 10.1 Immature Gran % 1.3 Seg Neutrophils % 73.5 Lymphocytes % 11.3 Monocytes % 10.6 Eosinophils % 2.6 Basophils % 0.7 Neutrophils # 4.0 Lymphocytes # 0.6 Monocytes # 0.6 Eosinophils # 0.1 Basophils # 0.0 Nucleated RBCs/100 WBC 0.6 H Immature Plt Fraction 4.8 Sodium 141 Potassium 3.5 Chloride 108 H Carbon Dioxide 25 BUN 12 Creatinine 0.71 Est GFR ( Amer) > 60 Est GFR (Non-Af Amer) > 60 BUN/Creatinine Ratio 17 Glucose 76 POC Glucose 74 Calculated Osmolality 291 Calcium 9.9 Total Bilirubin 1.4 H AST 11 L ALT 5 L Alkaline Phosphatase 62 Troponin I Serum Total Protein 6.4 Albumin 3.6 Globulin 2.8 Albumin/Globulin Ratio 1.3 Blood Type Antibody Screen SUZANNE, Poly Interpret Crossmatch - ABG Interpretation ABG results: PT/INR, D-dimer PT 13.8 Seconds (9.4-12.1) H 02/25/18 04:16 Consult Discharge Plan - Plan Referrals: Nicolas Hines, JENNIFFER [Primary Care Provider] -
--- NOTE | 2018-02-26 14:08 | Oncology Inp Consult Note ---
<Salma Grant L - Last Filed: 02/26/18 16:25> Date of Encounter: 02/26/18 Time of Encounter: 13:00 Assessment and Plan (1) Severe anemia Status: Acute Assessment and plan: hemoglobin 4.4 on presentation. On admission lab work reveals severely microcytic, hypochromic anemia with MCV 69 and MHC 17. She is iron deficient with ferritin less than 8. Iron deficiency most likely secondary to acute blood loss anemia. She is status post EGD and colonoscopy with Dr. Ferrer with no found etiology to explain her anemia. Than yesterday, I have ordered a CBC to be repeated to verify this result from this morning. For completeness I have ordered B12 and folate studies. Her LDH and reticulocyte count is low making hemolysis very unlikely. For confirmation and due to the fact that she had bilirubin in her urine which led to her presentation per PCP, I have ordered study for indirect bilirubin which is more specific for hemolysis. Haptoglobin is pending PT 13.8, INR 1.3, PTT 29.9 She presented PCP with mid lower abdominal pain and discomfort, she reports that this pain has began to improve although still present. I ordered a CT of her abdomen and pelvis to assess for any source of abdominal bleed or to assess for RP bleed. She does have a remote history of ovarian cancer diagnosed about 10 years ago treated with total hysterectomy and oophorectomy. She is a nonsmoker. She is unable to take any anticoagulation for her atrial fibrillation due to history of acute GI hemorrhage. Lab work at this time were consistent with acute blood loss anemia. Transfuse for hemoglobin less than 7. Her primary team has artery arranged for IV Venofer to be administered daily during her admission. Agree with iron repletion. Please refer to Dr. Cormier's attestation below for additional details. We will arrange for follow-up with Dr. Looney upon discharge. - Data of Consult Patient: new to practice Consult date: 02/26/18 Requesting Physician: Rowdy Machado MD Primary Care Provider: Nicolas Hines CNP - Consult Narrative Reason for consult: Anemia History of present illness: Ms. Harrison is a 67 year old female with past medical history significant for atrial fibrillation not on AC, hypertension, hyperlipidemia, vocal cord surgeries x2, gastric ulcers, GI bleed and ovarian cancer s/p total hysterectomy and oophorectomy. She initially presented to her PCP with complaints of lower abdominal discomfort and symptoms suspicious for UTI. A UA was a obtain and the patient was asked to present to ER with concern for amount of bilirubin and protein in her urine. Upon presentation to the ER the patient was found to have a hemoglobin of 4.4. She was admitted to the hospital for blood replacement and further workup. She had a GI consultation along with EGD and colonoscopy which did not locate a source of bleeding. Her EGD did not find mucosa that appeared like Bradley's esophagus which was biopsied. Her colonoscopy did not show evidence of diverticulosis, there is no stigmata of bleeding. Ms. Harrison is a bit of a poor historian making detailed remote history difficult. She reports that at age 19 she had had 3 menstrual bleeding which had required a D&C. She reports that at age 20 she had a PE. In her 40s she reports an issue with lower extremity blood clots that appeared to be consistent with superficial blood clots. Since this time she has had no other history of bleeding or thrombotic events. She has a history of atrial fibrillation and was placed on anticoagulation with resultant severe gastric hemorrhage. She states that she was told she should never again be a candidate for anticoagulation. She denies any recent signs or symptoms of bleeding such as melena, hematochezia , hematuria or hematemesis. Past Med Surg Social Fam HX - Past Medical History Medical history: atrial fibrillation, CHF, hyperlipidemia, hypertension Psychiatric history: depression - Social History Smoking Status: Never smoker Smokeless Tobacco Status: No Alcohol use: rarely Drug use: none Medications and Allergies Aspirin Enteric Coated [Aspirin EC] 650 mg PO DAILY 02/24/18 [History] FLUoxetine HCl [Prozac] 40 mg PO DAILY 02/24/18 [History] Furosemide [Lasix] 20 mg PO DAILY 02/24/18 [History] Omeprazole [PriLOSEC] 20 mg PO DAILY 02/24/18 [History] Potassium Chloride [Klor-Con] 20 meq PO DAILY 02/24/18 [History] Simvastatin [Zocor] 40 mg PO HS 02/24/18 [History] Sulfamethoxazole/Trimeth DS [Bactrim DS] 1 each PO BID 02/24/18 [History] dilTIAZem HCl [Diltiazem 24Hr Cd] 120 mg PO DAILY 02/24/18 [History] 3 Allergy/AdvReac Type Severity Reaction Status Date / Time rivaroxaban [From Xarelto] Allergy See Verified 02/24/18 12:19 Comments Warfarin [From Coumadin] Allergy See Verified 02/24/18 12:19 Comments Constitutional: Present: fatigue, weakness. Absent: anorexia, chills, fever(s) , frequent falls, headache(s), weight loss Eyes: Absent: change in vision Nose, mouth and throat: Present: as per HPI, hoarseness. Absent: dysphagia Cardiovascular: Absent: chest pain, irregular heart rhythm Respiratory: Present: dyspnea. Absent: cough Gastrointestinal: Present: abdominal pain, constipation. Absent: change in bowel habits, change in stool character, hematemesis, hematochezia, melena, nausea, vomiting Genitourinary: Present: dysuria. Absent: abnormal vaginal bleeding, hematuria Musculoskeletal: Present: muscle weakness Integumentary: Absent: wounds Neurological: Absent: focal weakness, frequent falls Psychiatric: Absent: change in appetite Hematologic/Lymphatic: Present: as per HPI Oncology - Exam - Constitutional Vitals: Temp Pulse Resp BP Pulse Ox 97.6 F 88 20 122/75 99 02/26/18 11:24 02/26/18 11:24 02/26/18 11:24 02/26/18 11:24 02/26/18 11:24 General appearance: cooperative, no acute distress, obese, no febrile - Head Head exam: Present: atraumatic - ENT ENT exam: Present: mucous membranes moist - Respiratory Respiratory exam: Present: CTAB. Absent: respiratory distress - Cardiovascular Cardiovascular exam: Present: irregular rhythm - GI/Abdominal GI/Abdominal exam: Present: normal bowel sounds, soft. Absent: tenderness - Extremities Exam Extremities exam: Absent: calf tenderness Additional comments: 2+ edema BLE - Neurological Exam Neurological exam: Present: alert, oriented X3, no focal deficits, strengths equal and symetr throughout - Psychiatric Psychiatric exam: Present: normal affect, normal mood - Skin Skin exam: Present: dry, intact, normal color, warm Oncology - Results Labs: Short CBC 02/25/18 02/26/18 Range/Units 20:37 05:34 WBC 5.4 (4.3-11.1) K/mcL Hgb 9.5 L D 8.5 L (11.5-15.4) g/dL Hct 33.7 L 29.2 L (35.3-44.9) % Plt Count 181 (140-400) K/mcL Neutrophils # 4.0 (1.6-8.9) K/mcL BMP 02/26/18 05:34 Sodium 141 Potassium 3.5 Chloride 108 H Carbon Dioxide 25 BUN 12 Creatinine 0.71 Glucose 76 Calcium 9.9 Cardiac Enzymes 02/25/18 Range/Units 14:13 Troponin I < 0.03 (< 0.04) ng/mL Liver Function 02/26/18 Range/Units 05:34 Total Bilirubin 1.4 H (0.3-1.0) mg/dL AST 11 L (13-39) Units/L ALT 5 L (7-52) Units/L Alkaline Phosphatase 62 (34-104) Units/L Albumin 3.6 (3.5-5.7) g/dL Consult Discharge Plan - Plan Referrals: Nicolas Hines CNP [Primary Care Provider] - <Aure Looney - Last Filed: 02/27/18 09:03> Date of Encounter: 02/27/18 - Data of Consult Requesting Physician: Rowdy Machado MD Primary Care Provider: Nicolas Hines CNP - Consult Narrative History of present illness: Lab data consistent with iron deficiency. No active bleeding noted on regular scope. The she is unable to swallow YOU for endoscopy. Intravenous iron replacement therapy, status post blood transfusion. Recommended the extra dose of benefit further as she is in the hospital. CT scan findings noted slight increase in fluid otherwise negative for hematoma. Labs to be monitored closely as an outpatient. Please arrange follow-up with us in the clinic when she is discharged from hospital. We will follow up on results of the anemia workup. I examined this patient and my medical decision-making was reviewed with the Advanced Practice Nurse, Salma Grant. I agree with the documented findings, disposition and treatment plan as described except to the extent set forth below. Oncology - Exam - Constitutional Vitals: Temp Pulse Resp BP Pulse Ox 98.0 F 81 18 108/52 99 02/27/18 07:03 02/27/18 07:03 02/27/18 07:03 02/27/18 07:03 02/27/18 07:03 Oncology - Results Labs: Short CBC 02/26/18 Range/Units 14:04 WBC 5.6 (4.3-11.1) K/mcL Hgb 8.5 L (11.5-15.4) g/dL Hct 29.7 L (35.3-44.9) % Plt Count 178 (140-400) K/mcL Neutrophils # 4.0 (1.6-8.9) K/mcL Liver Function 02/26/18 Range/Units 14:08 Total Bilirubin 1.3 H (0.3-1.0) mg/dL Direct Bilirubin 0.5 H (0.0-0.2) mg/dL
[2018-02-26 15:03] LABS: Basophils % 0.7 %; Eosinophils # 0.2 K/mcL (0.0-0.6); Hematocrit 29.7 % (35.3-44.9); Hemoglobin 8.5 g/dL (11.5-15.4); Immature Granulocytes % 1.6 % (0-4); Lymphocytes # 0.7 K/mcL (0.6-4.6); Lymphocytes % 12.9 %; Mean Corpuscular HGB Conc 28.6 g/dL (31.6-35.5); Mean Corpuscular Hemoglobin 21.5 pg (28.0-33.3); Mean Platelet Volume 10.4 fL (9.4-12.4); Monocytes # 0.6 K/mcL (0.0-1.3); Monocytes % 10.6 %; Nucleated Red Blood Cells 0.5 /100 WBC (0); Platelet Count 178 K/mcL (140-400); Red Blood Count 3.96 M/mcL (3.82-4.97); Red Cell Distribution Width 23.5 % (11.5-14.5); Segmented Neutrophils % 71.2 %
[2018-02-26 15:19] LABS: Bilirubin,Direct 0.5 mg/dL (0.0-0.2); Bilirubin,Indirect 0.8 mg/dL (0.0-1.2); Bilirubin,Total 1.3 mg/dL (0.3-1.0)
[2018-02-26 15:29] LABS: Anisocytosis 3+ (Not Present); Hypochromasia Present (Not Present); Microcytosis Present (Not Present); Platelet Estimate Normal (Normal)
[2018-02-27] MEDS: Nitrofurantoin (BID) 100 MG CAPSULE PO SCH ×2 (09:18→16:16)
[2018-02-27] MEDS: FLUoxetine 20 MG CAPSULE PO SCH (09:18)
[2018-02-27] MEDS: Furosemide 20 MG TABLET PO SCH (09:18)
[2018-02-27] MEDS: Diltiazem CD (24hr) 120 MG CAPSULE PO SCH (09:19)
[2018-02-27 10:39] LABS: Hematocrit 28.1 % (35.3-44.9); Hemoglobin 8.1 g/dL (11.5-15.4); Immature Platelets 4.1 % (1.1-6.1); Mean Corpuscular HGB Conc 28.8 g/dL (31.6-35.5); Mean Corpuscular Volume 76.4 fL (83.0-100.0); Mean Platelet Volume 10.3 fL (9.4-12.4); Nucleated Red Blood Cells 0.8 /100 WBC (0); Platelet Count 190 K/mcL (140-400); Red Blood Count 3.68 M/mcL (3.82-4.97); Red Cell Distribution Width 24.1 % (11.5-14.5)
[2018-02-27 10:49] LABS: BUN/Creatinine Ratio 10 (6-26); Blood Urea Nitrogen 8 mg/dL (8-23); Calcium 10.2 mg/dL (8.6-10.3); Carbon Dioxide 27 mEq/L (23-29); Chloride 108 mEq/L (98-107); Glucose 107 mg/dL (70-105); Osmolality,Calculated 289 (280-300); Potassium 3.5 mEq/L (3.5-5.1); Sodium 140 mEq/L (136-145); eGFR For African Americans > 60 (> 60); eGFR For Non-African Americans > 60 (> 60)
[2018-02-27 11:17] LABS: Eosinophils # 0.2 K/mcL (0.0-0.6); Lymphocytes # 1.2 K/mcL (0.6-4.6); Monocytes # 0.1 K/mcL (0.0-1.3); Neutrophils # 3.5 K/mcL (1.6-8.9)
[2018-02-27 11:19] LABS: Platelet Estimate Normal (Normal)
[2018-02-27 11:20] LABS: Anisocytosis 2+ (Not Present); Hypochromasia Present (Not Present)
[2018-02-27] MEDS: Iron Sucrose Complex 200 MG in 0.9 % Sodium Chloride 100 ML IVPB SCH (11:58)
--- NOTE | 2018-02-27 15:38 | Internal Med Progress Note ---
Date of Encounter: 02/27/18 Time of Encounter: 16:00 - Assessment and plan (1) Severe anemia Current Visit: Yes Status: Acute Assessment and plan: Surgical colonoscopy and EGD were normal and did not show any evidence of ongoing bleeding or source of bleeding. Workup for hemolytic anemia is negative. We did note iron deficiency and patient is on iron supplementation. CT abdomen and pelvis shows evidence of free fluid which may be hemoperitoneum. However considering patient is clinically stable we will monitor and reassess for any further invasive testing. If clinical deterioration is noted she will need an angiogram and embolization considering source of bleeding might be abdominal blood vessels. (2) Hx pulmonary embolism Current Visit: No Status: Chronic Assessment and plan: - History of blood clots including PE and DVT. May need hypercoagulation workup. - Not on any anticoagulation because of massive bleeding in the past. (3) History of GI bleed Current Visit: Yes Status: Acute Assessment and plan: - History of peptic ulcer, continue PPI. 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 She needs a follow- up VQ scan after discharge and should be referred to [facility] for further workup. 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 No anticoagulation besides aspirin because of bleeding in the past. (6) Diastolic heart failure Current Visit: No Status: Chronic Assessment and plan: - TTE 08/2017 revealed preserved EF 65%, normal systolic function, mild LV diastolic dysfunction, moderate to severely dilated left and right atrium, and the severe pulmonary hypertension. - Euvolemic on physical exam, Continue home Lasix by mouth. Qualifiers: Heart failure chronicity: chronic Qualified Code(s): I50.32 - Chronic diastolic (congestive) heart failure (7) Morbid obesity Current Visit: No Status: Chronic Assessment and plan: - increase activity and diet control discussed with patient. - Time Spent With Patient Total time spent is greater than 50% in coordination of care (as documented) at patient's floor/unit and/or counseling patient: 25 - 35 minutes - Subjective Interval history: No interval bleeding noted. She reports no abdominal pain but has noted distention. - Constitutional Vitals: Temp Pulse Resp BP Pulse Ox 98.0 F 89 14 101/69 96 02/27/18 15:33 02/27/18 15:33 02/27/18 15:33 02/27/18 15:33 02/27/18 15:33 General appearance: Present: A&O X 3, pleasant, no acute distress, answers questions appropriately Exam: Physical exam Gen: Comfortable, laying in bed, in no visible distress HEENT: Normocephalic, atraumatic. Noted conjunctival icterus. Moist oral mucosa. Neck: Supple Lungs: Clear to auscultation, no foreign sounds Heart: Normal S1-S2, no murmurs rubs or gallops Abdomen: Normoactive bowel sounds, no guarding rigidity or tenderness Extremities: No clubbing or cyanosis. 1+ edema of the lower extremities present Neuro: Alert oriented 3, no focal deficits Skin: purpura from needle sticks Internal Medicine: Result - Labs CBC & Chem 7: 02/27/18 10:12 02/27/18 10:12 Labs: Short CBC 02/27/18 Range/Units 10:12 WBC 5.0 (4.3-11.1) K/mcL Hgb 8.1 L (11.5-15.4) g/dL Hct 28.1 L (35.3-44.9) % Plt Count 190 (140-400) K/mcL Neutrophils # 3.5 (1.6-8.9) K/mcL BMP 02/27/18 10:12 Sodium 140 Potassium 3.5 Chloride 108 H Carbon Dioxide 27 BUN 8 Creatinine 0.82 Glucose 107 H Calcium 10.2 - ABG Interpretation ABG results: PT/INR, D-dimer PT 13.8 Seconds (9.4-12.1) H 02/25/18 04:16 - Impressions Impressions Abdomen/Pelvis CT 02/26/18 21:30 IMPRESSION: Intraperitoneal fluid, slightly greater in density than simple fluid, given clinical information of severe anemia, hemoperitoneum is not excluded. Infraumbilical ventral hernia, broad-based defect contains loops of bowel without obstruction. D/ / Mati Caldwell MD / Mati Caldwell MD Interpreting Provider: Mati Caldwell MD - VTE Documentation of Mechanical Device: Graduated compression elastic hosiery Consult Discharge Plan - Plan Referrals: Nicolas Hines, HAND CUTTER [Primary Care Provider] -
[2018-02-27] MEDS ORDERED: *HR* HYDROcodone/Acet 5/325 mg TABLET PO PRN (21:36)
[2018-02-27] MEDS: Acetaminophen 325 MG TABLET PO PRN (22:10)
--- NOTE | 2018-02-27 22:45 | Event Note ---
Date of Encounter: 02/27/18 Time of Encounter: 21:21 Alerted by pts. nurse the patient was experiencing low back pain rated at 6/10. No pain meds currently ordered. Tylenol 650 mg Q6HR when necessary for mild pain and hydrocodone 5/325 one tab Q6HR for moderate pain ordered. Nurse instructed to administer Tylenol first d/t pts. latest BP of 114/69. Pt. and VS to be monitored closely for hypotension.
[2018-02-28 04:38] LABS: Mean Corpuscular Hemoglobin 22.1 pg (28.0-33.3); Nucleated Red Blood Cells 0.8 /100 WBC (0); Platelet Count 165 K/mcL (140-400); Red Cell Distribution Width 25.9 % (11.5-14.5)
[2018-02-28 04:39] LABS: Basophils # 0.1 K/mcL (0.0-0.2); Basophils % 1.2 %; Eosinophils # 0.4 K/mcL (0.0-0.6); Eosinophils % 7.1 %; Hematocrit 29.7 % (35.3-44.9); Hemoglobin 8.4 g/dL (11.5-15.4); Immature Granulocytes % 0.8 % (0-4); Lymphocytes # 1.2 K/mcL (0.6-4.6); Lymphocytes % 22.7 %; Mean Corpuscular HGB Conc 28.3 g/dL (31.6-35.5); Mean Corpuscular Volume 78.2 fL (83.0-100.0); Monocytes # 0.6 K/mcL (0.0-1.3); Monocytes % 12.3 %; Neutrophils # 2.9 K/mcL (1.6-8.9); Segmented Neutrophils % 55.9 %
[2018-02-28 05:03] LABS: BUN/Creatinine Ratio 10 (6-26); Blood Urea Nitrogen 8 mg/dL (8-23); Calcium 10.3 mg/dL (8.6-10.3); Carbon Dioxide 28 mEq/L (23-29); Chloride 107 mEq/L (98-107); Glucose 84 mg/dL (70-105); Osmolality,Calculated 294 (280-300); Potassium 3.8 mEq/L (3.5-5.1); Sodium 143 mEq/L (136-145); eGFR For African Americans > 60 (> 60); eGFR For Non-African Americans > 60 (> 60)
[2018-02-28 05:21] LABS: Platelet Estimate Normal (Normal)
[2018-02-28 05:23] LABS: Anisocytosis 2+ (Not Present); Polychromasia 1+ (Not Present)
[2018-02-28] MEDS: Acetaminophen 325 MG TABLET PO PRN (06:06)
[2018-02-28] MEDS: Nitrofurantoin (BID) 100 MG CAPSULE PO SCH (09:24)
[2018-02-28] MEDS: Diltiazem CD (24hr) 120 MG CAPSULE PO SCH (09:24)
[2018-02-28] MEDS: Furosemide 20 MG TABLET PO SCH (09:24)
[2018-02-28] MEDS: FLUoxetine 20 MG CAPSULE PO SCH (09:24)
[2018-02-28 11:44] VITALS: BP 128/90
--- NOTE | 2018-02-28 13:33 | Oncology Inp Progress Note ---
Date of Encounter: 02/28/18 Time of Encounter: 08:00 (1) Severe anemia Current Visit: Yes Status: Acute Assessment and plan: iron deficiency, s/p venofer, PRBC, labs stable. occult bleed possibility. CT findings noted. Hemodynamically steady. Abd discomfort, s/p abx for UTI, E coli. Monitor labs, if steady f/u in heme clinic out patient. Anticoagulation on hold for hx PE/A fib due to severe anemia, GI bleed, GI bleed Plan of care d/w pt bedside Oncology: Subj Interval history: reports lower abd pain cramp like. no diarrhea or blood. energy improved - Constitutional Vitals: Vital Signs Temp Pulse Resp BP Pulse Ox 02/28/18 11:42 97.5 F L 128 17 128/90 95 02/28/18 11:25 97.4 F L 79 16 105/67 95 02/28/18 07:14 98.3 F 85 16 113/55 93 02/28/18 03:50 98.3 F 92 16 97/60 96 02/27/18 23:26 98.2 F 85 16 114/69 98 02/27/18 19:12 98.5 F 92 16 114/69 95 02/27/18 15:33 98.0 F 89 14 101/69 96 Intake and Output 02/27/18 02/28/18 02/28/18 23:59 07:59 15:59 Intake Total 120 / 120 270 / 270 Output Total 0 / 0 Balance 120 / 120 270 / 270 Intake: Oral 120 / 120 270 / 270 Output: Urine 0 / 0 Other: Meal Dinner Lunch Percent of Meal Consumed 50% 40% Weight 96.388 kg Patient Weight 02/28/18 23:59 Weight 96.388 kg General appearance: no acute distress - Head Head exam: Present: atraumatic, normal inspection - Eye Eye exam: Present: conjuntiva pink, sclera anicteric - Neck Neck exam: Present: normal inspection - Respiratory Respiratory exam: Present: CTAB - GI/Abdominal GI/Abdominal exam: Present: normal bowel sounds, soft Additional comments: non tender - Extremities Exam Extremities exam: Present: pedal edema Oncology: Obj Data - Labs CBC & Chem 7: 02/28/18 04:16 02/28/18 04:16 Labs: Laboratory Results - last 24 hr 02/28/18 02/28/18 04:16 04:16 WBC 5.2 RBC 3.80 L Hgb 8.4 L Hct 29.7 L MCV 78.2 L MCH 22.1 L MCHC 28.3 L RDW 25.9 H Plt Count 165 MPV TNP Immature Gran % 0.8 Seg Neutrophils % 55.9 Lymphocytes % 22.7 Monocytes % 12.3 Eosinophils % 7.1 Basophils % 1.2 Neutrophils # 2.9 Lymphocytes # 1.2 Monocytes # 0.6 Eosinophils # 0.4 Basophils # 0.1 Nucleated RBCs/100 WBC 0.8 H Platelet Estimate Normal Polychromasia 1+ A Anisocytosis 2+ A Sodium 143 Potassium 3.8 Chloride 107 Carbon Dioxide 28 BUN 8 Creatinine 0.77 Est GFR ( Amer) > 60 Est GFR (Non-Af Amer) > 60 BUN/Creatinine Ratio 10 Glucose 84 Calculated Osmolality 294 Calcium 10.3 - ABG Interpretation ABG results: PT/INR, D-dimer PT 13.8 Seconds (9.4-12.1) H 02/25/18 04:16 Consult Discharge Plan - Plan Referrals: Nicolas Hines, [employer] [Primary Care Provider] -
--- NOTE | 2018-02-28 14:02 | Discharge Summary ---
- NOTES TO OUTPATIENT PROVIDER Notes to Outpatient Provider: Repeat CBC in 1 week. Follow-up with Aure Looney MD in 2 weeks Orders not resulted at time of discharge: Pending orders 02/25/18 09:18 Fecal Hemoccult [Occult Blood,Stool] [BF] Routine 02/25/18 14:13 Celiac Disease Dual Ag Screen Routine 02/26/18 09:07 Surgical Pathology [PTH] Routine Date of Encounter: 02/28/18 Time of Encounter: 14:00 - Discharge Diagnosis (1) Severe anemia Priority: Primary Status: Acute Comments: Workup during this admission included EGD and colonoscopy that did not show any ongoing bleeding or source of bleeding. Workup for hemolytic anemia was negative. We did note iron deficiency and patient received IV and oral supplementation. CT abdomen and pelvis showed evidence of free fluid which may be hemoperitoneum but she was clinically stable. As such we did not pursue invasive workup at this point in time. The plan is to see hematology in clinic post discharge. (2) Hx pulmonary embolism Priority: Secondary Status: Chronic Comments: She is currently off anticoagulation (3) History of GI bleed Priority: Secondary Status: Chronic Comments: No evidence of ongoing bleeding during this admission. Prior history though. 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 She will need follow-up VQ scan after discharge and should be referred to [facility] for further workup. (5) Atrial fibrillation Priority: Secondary Status: Chronic Qualifiers: Atrial fibrillation type: chronic Qualified Code(s): I48.2 - Chronic atrial fibrillation (6) Diastolic heart failure Priority: Secondary Status: Chronic Qualifiers: Heart failure chronicity: chronic Qualified Code(s): I50.32 - Chronic diastolic (congestive) heart failure (7) Morbid obesity Priority: Secondary Status: Chronic Hospital course: Ms. Harrison is a 67 year old female was a better history of atrial ablation, hypertension, hyperlipidemia who presented from her primary care provider's office to [facility] emergency room for possible jaundice. Patient was evaluated by [facility] emergency room. Basic labs were drawn. Noted that patient has a hemoglobin of 4.4. Also noted that patient has a possible urinary tract infection as per urine analysis evaluation. Patient was transferred to this hospital in view of hemoglobin 4.4. Patient had a previous history of GI bleed and she underwent endoscopy. It was noted that patient had a gastric ulcer at that time. Stool occult blood was negative at [facility] emergency room. In our institution, patient underwent upper GI endoscopy and colonoscopy which were negative for ongoing bleeding or source of bleeding. Patient was worked up for hemolytic anemia which was negative. A CT abdomen and pelvis was performed which showed free fluid in the abdomen the suspicion for hemoperitoneum. However, she remained clinically stable for the remaining admission and after consultation and hematology the plan was to see her in clinic and reassess things. A prescription for a repeat CBC in 1 week has been provided and patient has been made aware of her follow-up appointment requirements. - Time Spent with Patient Total time spent providing and/or coordinating discharge services: Less than 30 minutes - Discharge Medications Prescriptions: Ferrous Sulfate 325 mg PO BID #60 tablet Home Medications: Aspirin Enteric Coated [Aspirin EC] 650 mg PO DAILY 02/24/18 [History] FLUoxetine HCl [Prozac] 40 mg PO DAILY 02/24/18 [History] Furosemide [Lasix] 20 mg PO DAILY 02/24/18 [History] Omeprazole [PriLOSEC] 20 mg PO DAILY 02/24/18 [History] Potassium Chloride [Klor-Con] 20 meq PO DAILY 02/24/18 [History] Simvastatin [Zocor] 40 mg PO HS 02/24/18 [History] dilTIAZem HCl [Diltiazem 24Hr Cd] 120 mg PO DAILY 02/24/18 [History] Ferrous Sulfate 325 mg PO BID #60 tablet 02/28/18 [Rx] Allergies/Adverse Reactions: 3 Allergy/AdvReac Type Severity Reaction Status Date / Time rivaroxaban [From Xarelto] Allergy See Verified 02/24/18 12:19 Comments Warfarin [From Coumadin] Allergy See Verified 02/24/18 12:19 Comments Date of admission: 02/24/18 21:11 Primary care physician: Nicolas Hines CNP Consults: 02/24/18 21:27 Consult to Gastroenterology [CONS] Routine Consulting Provider: [facility] Reason for Consult: Hb 4.4. previous GI bleed and underwent EGD Call Completed: No 02/26/18 10:16 Consult to Invasive Line Access Team [CONS] Routine Reason for Consult: limited vascular access Line Type: EPIV 02/26/18 10:37 Consult to Oncology [CONS] Routine Consulting Provider: [facility] Reason for Consult: bleeding disorder and coagulation problem. Call Completed: Yes Discharging clinician: Misa Olsen Anticipated date of discharge: 02/28/18 - Constitutional Vitals: Temp Pulse Resp BP Pulse Ox 97.5 F L 128 17 128/90 95 02/28/18 11:42 02/28/18 11:42 02/28/18 11:42 02/28/18 11:42 02/28/18 11:42 General appearance: Present: A&O X 3, pleasant, no acute distress, answers questions appropriately Exam: Physical exam Gen: Comfortable, laying in bed, in no visible distress HEENT: Normocephalic, atraumatic. No conjunctival icterus. Moist oral mucosa. Neck: Supple Lungs: Clear to auscultation, no foreign sounds Heart: Normal S1-S2, no murmurs rubs or gallops Abdomen: Normoactive bowel sounds, no guarding rigidity or tenderness Extremities: No edema clubbing or cyanosis Neuro: Alert oriented 3, no focal deficits Skin: No skin lesions - Patient Status Disposition: Home, Self-Care Condition: Good Functional capacity at discharge: independent ambulation - Ambulatory Orders Ambulatory Orders: Complete Blood Count [HEME] Time Frame: 1 Week, Facility: [facility], Location: Lab - Discharge Instructions Follow Up With: Nicolas Hines CNP [Primary Care Provider] - Aure Loonye MD [Partnered Physician] - (Acute anemia of unclear etiology. Hospital follow-up within 2 weeks.) Justine Moore MD [Partnered Physician] - (Pulmonary hypertension. Rule out CTEPH.) Additional Instructions: Recheck CBC in 1 week. Follow-up with Dr. Aure Lewis in 2 weeks. - Diet and Activity Activity: resume usual activities as tolerated Diet: advance to your usual diet - VTE Documentation of Mechanical Device: Graduated compression elastic hosiery
[2018-03-02 07:29] LABS: Celiac Disease Dual Antigen 8 Units (0-19)
== END 2018-02-28 15:29 | disposition home or self-care (01) | DRG 384 ==
LOC: 2SOUTHHOLD → 2ANU 02-27 18:00
PROVIDERS: ADMIT Internal Medicine; ATTEND Internal Medicine
PROC: ENDOEBX (2018-02-26 08:30)